=== PATIENT | female | born 1995 | race Caucasian/White ===

== ENCOUNTER 2017-03-20 12:39 | Emergency (ER) | payer SELFPAY ==
--- NOTE | 2017-03-20 14:41 | ED NURSING NOTES ---
Clinical Report - Nurses [facility] [address] [place] [address] 03/20/2017 12:40 Patient: VINOD GARRETT TRIAGE Triage time 12:56 Mar 20 2017. Acuity: LEVEL 3. Chief Complaint: INJURY TO LEFT ANKLE. KENNETH COMA SCORE: Kenneth Coma Scale: 15- eyes open spontaneously (4); best verbal response- oriented x 4 (5); best motor response- obeys commands (6). --12:59 Cody Sharp R.N. 12:56 03/20/17. BP: 122/64. HR: 88. RR: 18. O2 saturation: 98%. Temp: 98.6 F. Pain level now 7/10. --12:59 Cody Sharp R.N. Weight: 73 kg stated. Height/Length: 62 inches Per Patient. BMI: 29.5. --12:58 Cody Sharp R.N. Medications None. --12:57 Cody Sharp R.N. Allergies No Known Drug Allergy. --12:57 Cody Sharp R.N. History Arrived by private vehicle. Historian: patient. Accompanied by family. This occurred (3 days ago). Mechanism of injury: sustained a twisting injury. ( Was chasing a cat and fell into a hole and hurt her left ankle.). She has had numbness (toes). She has had trouble walking. The patient has been limping when trying to walk. No tingling, weakness, neck pain or back pain. 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 PAST MEDICAL HX: No history of diabetes mellitus, hypertension, heart disease or lung disease. Tetanus status: up-to-date. Immunizations: up-to-date. Last normal menstrual period- currently. SOCIAL HX: Heavy tobacco smoker (cigarette)- less than 1 pack per day. History of drug use: marijuana. No alcohol use. SELF HARM ASSESSMENT: A self harm assessment was performed. The patient answered "no" to the question "Have you recently felt down, depressed, or hopeless?" and "Do you have thoughts of harming or killing yourself?". FALL RISK ASSESSMENT: Fall risk assessment completed. No fall risk identified. NUTRITIONAL RISK ASSESSMENT: The nutritional risk assessment revealed no deficiencies. FUNCTIONAL ASSESSMENT: Functional assessment: no impairments noted. LEARNING NEEDS ASSESSMENT: The learning needs assessment revealed no barriers. ABUSE ASSESSMENT: Abuse assessment: (yes) The patient was asked "Do you feel safe in your home?". SKIN INTEGRITY ASSESSMENT: Skin integrity risk assessment completed. No skin integrity risk identified. --12:59 Cody Sharp R.N. ADDITIONAL SURGERIES: no known surgeries. Interventions ID band on patient. --12:59 Cody Sharp R.N. PHYSICAL ASSESSMENT Ambulatory to room. GENERAL / NEURO / PSYCH: Oriented X 4. Alert. Appears in no acute distress. Appears in pain. EXTREMITIES: Capillary refill is less than 2 seconds in the extremities. Extremity pulses are within normal limits. Extremities exhibit normal ROM. Pain with weight bearing. Neuro-vascular status intact to the extremity. Left ankle: tenderness and swelling. SKIN: Skin intact. Skin is warm and dry. --12:59 Cody Sharp R.N. NURSING PROGRESS NOTES Cold pack applied. Extremity elevated. Neuro-vascular extremity check. Reassurance given. Call light placed in reach. Side rails up x 1. Bed placed in lowest position. Brakes of bed on. --13:00 Cody Sharp R.N. 14:55 03/20/17. 4 inch sage bandage applied to left ankle; distal pulses intact, sensation intact and motor function within normal limits. --14:55 Deanne Florez. DISPOSITION / DISCHARGE Departure time: 14:57 Mar 20 2017. Condition at departure: unchanged. No learning barriers present. Discharge instructions provided and reviewed with the patient. Reviewed warnings. Reviewed medication(s). Treatments reviewed. Reviewed referrals. Patient and parent verbalized understanding. Written instructions provided in Sierra Leonean. The patient was discharged home and accompanied by parent. She left the Emergency Department ambulatory and via private vehicle. Parent driving. --14:57 Cody Sharp R.N. 14:56 03/20/17. BP: 118/74. HR: 80. RR: 18. O2 saturation: 100%. Temp: 98.4 F. Pain level now 05/31. --14:57 Cody Sharp R.N. Locked/Released at 03/22/2017 10:10 by Cody Sharp R.N.
--- NOTE | 2017-03-20 14:41 | ED ORDER SUMMARY ---
..... Patient: VINOD GARRETT OrderSheet [facility] VisitID: [id number] [address] [place] [address] 21y, F Registration Date/Time: 03/20/2017 ORDER SHEET Weight: 73.0 kg (stated) Allergies: No Known Drug Allergy GENERAL ORDERS: Ankle 3 or 4V Left Urgent (13:19 03/20/2017 HBivens A.R.N.P.) (Ack 13:20 TBergley) (14:12 TBergley) Casey Wrap (14:40 03/20/2017 HBivens A.R.N.P.) (14:55 Angelica R.N.) MEDICATION ORDERS: IV FLUIDS: ORDER SHEET NOTES: [Electronically signed by Vickie Araujo.R.N.P. (14:58 03/20/2017)] [Electronically signed by Cody Sharp R.N. (10:10 03/22/2017)] [Electronically locked/signed by Cody Sharp R.N. (10:10 03/22/2017)]
--- NOTE | 2017-03-20 14:41 | ED NURSING NOTES ---
Clinical Report - Nurses [facility] [address] [place] [address] 03/20/2017 12:40 Patient: VINOD GARRETT TRIAGE Triage time 12:56 Mar 20 2017. Acuity: LEVEL 3. Chief Complaint: INJURY TO LEFT ANKLE. KENNETH COMA SCORE: Kenneth Coma Scale: 15- eyes open spontaneously (4); best verbal response- oriented x 4 (5); best motor response- obeys commands (6). --12:59 Cody Sharp R.N. 12:56 03/20/17. BP: 122/64. HR: 88. RR: 18. O2 saturation: 98%. Temp: 98.6 F. Pain level now 7/10. --12:59 Cody Sharp R.N. Weight: 73 kg stated. Height/Length: 62 inches Per Patient. BMI: 29.5. --12:58 Cody Sharp R.N. Medications None. --12:57 Cody Sharp R.N. Allergies No Known Drug Allergy. --12:57 Cody Sharp R.N. History Arrived by private vehicle. Historian: patient. Accompanied by family. This occurred (3 days ago). Mechanism of injury: sustained a twisting injury. ( Was chasing a cat and fell into a hole and hurt her left ankle.). She has had numbness (toes). She has had trouble walking. The patient has been limping when trying to walk. No tingling, weakness, neck pain or back pain. 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 PAST MEDICAL HX: No history of diabetes mellitus, hypertension, heart disease or lung disease. Tetanus status: up-to-date. Immunizations: up-to-date. Last normal menstrual period- currently. SOCIAL HX: Heavy tobacco smoker (cigarette)- less than 1 pack per day. History of drug use: marijuana. No alcohol use. SELF HARM ASSESSMENT: A self harm assessment was performed. The patient answered "no" to the question "Have you recently felt down, depressed, or hopeless?" and "Do you have thoughts of harming or killing yourself?". FALL RISK ASSESSMENT: Fall risk assessment completed. No fall risk identified. NUTRITIONAL RISK ASSESSMENT: The nutritional risk assessment revealed no deficiencies. FUNCTIONAL ASSESSMENT: Functional assessment: no impairments noted. LEARNING NEEDS ASSESSMENT: The learning needs assessment revealed no barriers. ABUSE ASSESSMENT: Abuse assessment: (yes) The patient was asked "Do you feel safe in your home?". SKIN INTEGRITY ASSESSMENT: Skin integrity risk assessment completed. No skin integrity risk identified. --12:59 Cody Sharp R.N. ADDITIONAL SURGERIES: no known surgeries. Interventions ID band on patient. --12:59 Cody Sharp R.N. PHYSICAL ASSESSMENT Ambulatory to room. GENERAL / NEURO / PSYCH: Oriented X 4. Alert. Appears in no acute distress. Appears in pain. EXTREMITIES: Capillary refill is less than 2 seconds in the extremities. Extremity pulses are within normal limits. Extremities exhibit normal ROM. Pain with weight bearing. Neuro-vascular status intact to the extremity. Left ankle: tenderness and swelling. SKIN: Skin intact. Skin is warm and dry. --12:59 Cody Sharp R.N. NURSING PROGRESS NOTES Cold pack applied. Extremity elevated. Neuro-vascular extremity check. Reassurance given. Call light placed in reach. Side rails up x 1. Bed placed in lowest position. Brakes of bed on. --13:00 Cody Sharp R.N. 14:55 03/20/17. 4 inch sage bandage applied to left ankle; distal pulses intact, sensation intact and motor function within normal limits. --14:55 Deanne Florez. DISPOSITION / DISCHARGE Departure time: 14:57 Mar 20 2017. Condition at departure: unchanged. No learning barriers present. Discharge instructions provided and reviewed with the patient. Reviewed warnings. Reviewed medication(s). Treatments reviewed. Reviewed referrals. Patient and parent verbalized understanding. Written instructions provided in Kazakh. The patient was discharged home and accompanied by parent. She left the Emergency Department ambulatory and via private vehicle. Parent driving. --14:57 Cody Sharp R.N. 14:56 03/20/17. BP: 118/74. HR: 80. RR: 18. O2 saturation: 100%. Temp: 98.4 F. Pain level now 05/31. --14:57 Cody Sharp R.N. Locked/Released at 03/22/2017 10:10 by Cody Sharp R.N.
--- NOTE | 2017-03-20 14:41 | ED CLINICAL REPORT ---
Clinical Report - Physicians/Mid Levels [facility] [address] [place] [address] 03/20/2017 12:40 Patient: VINOD GARRETT Time Seen: 1309; initial patient contact, initial documentation, patient care assumed. Arrived- By private vehicle. Historian- patient. HISTORY OF PRESENT ILLNESS Chief Complaint: Injury to left ankle. The injury happened about 3 days ago. The patient sustained a twisting injury while running (chasing a cat). Occurred at home. Patient is experiencing moderate pain. Patient denies injury to the head or neck. No other injury. REVIEW OF SYSTEMS The patient complains of pain on weight bearing. She has had new onset of localized moderate swelling of the left ankle, (swelling has gotten better). No tingling, weakness, numbness or skin laceration. PAST HISTORY Negative. The patient has had a prior injury once to the same area (fracture). SOCIAL HISTORY Never smoker. No alcohol use or drug use. No recent travel. Is a local resident. FAMILY HISTORY No significant family medical history. ADDITIONAL NOTES The nursing notes have been reviewed with agreement regarding the chief complaint, HPI, ROS, PMH and patient medications and allergies. PHYSICAL EXAM Vital Signs: 03/20/2017 12:56 BP: 122/64. HR: 88. RR: 18. O2 saturation: 98%. Temp: 98.6 F. Have been reviewed as normal and appear to be correct. Appearance: Alert. Oriented X3. No acute distress. Head: Head atraumatic. Eyes: Pupils equal, round and reactive to light. Eyes normal inspection. Respiratory: No respiratory distress. Skin: Skin intact. Skin warm and dry. Normal skin color. Normal skin turgor. Extremities: Left ankle: moderate tenderness and mild swelling localized to the lateral malleolus. Limited ROM (diminished plantar flexion, dorsiflexion, inversion and eversion). Neurovascular intact distally. No ligamentous laxity present. No joint effusion. No erythema, laceration, abrasion, ecchymosis or puncture wound. No foreign body or deformity. Lower extremity exam otherwise negative. Extremities otherwise negative. Neuro, Vascular and Tendons: Vascular status intact. Sensation intact. Motor intact. Tendon function intact. Gait: Abnormal gait. Gait not tested due to pain. Neuro: Oriented X 3. No motor deficit. No sensory deficit. Note: isolated injury to ankle. LABS, X-RAYS, AND EKG X-Rays: X-rays are normal and reveal no acute disease (and reviewed by dr santiago). Left ankle negative. The X-rays were independently viewed by me. Lt Ankle X-ray: (IMPRESSION: 1. Normal left ankle. Electronically Final signed by:Immanuel Perry MD 03/20/2017 2:53:08 PM). The X-rays were interpreted by the radiologist and contemporaneously by me. PROGRESS AND PROCEDURES Patient counseled in person regarding the patient's stable condition, test results and diagnosis. Differential Diagnosis: Other possible considerations: ankle fx vs sprain. Above considerations are based on history, physical exam, reassessment and X-Ray data. Differential diagnosis was discussed with patient. Disposition: Discharged home in good and improved condition (14:40). Condition: good and stable. CLINICAL IMPRESSION Sprain of the tibiofibular ligament of the left ankle. INSTRUCTIONS Wear elastic wrap (Casey wrap) as directed for one weeks until better. Warnings: GENERAL WARNINGS: Return or contact your physician immediately if your condition worsens or changes unexpectedly, if not improving as expected, or if other problems arise. Specifically return if problem worsens. Prescription Medications: Naproxen 500 mg tablets: take 1 orally every 12 hours as needed for pain. Dispense twenty (20). No refills. Follow-up: Follow up with your doctor in about one week as needed. Call for an appointment. Summary of care provided to patient. Understanding of the discharge instructions verbalized by patient. (Electronically signed by Vickie Araujo A.R.N.P. 03/20/2017 14:58)
--- NOTE | 2017-03-20 14:41 | ED ORDER SUMMARY ---
..... Patient: VINOD GARRETT OrderSheet [facility] VisitID: [id number] [address] [place] [address] 21y, F Registration Date/Time: 03/20/2017 ORDER SHEET Weight: 73.0 kg (stated) Allergies: No Known Drug Allergy GENERAL ORDERS: Ankle 3 or 4V Left Urgent (13:19 03/20/2017 HBivens A.R.N.P.) (Ack 13:20 TBergley) (14:12 TBergley) Casey Wrap (14:40 03/20/2017 HBivens A.R.N.P.) (14:55 Angelica R.N.) MEDICATION ORDERS: IV FLUIDS: ORDER SHEET NOTES: [Electronically signed by Vickie Araujo.R.N.P. (14:58 03/20/2017)] [Electronically signed by Cody Sharp R.N. (10:10 03/22/2017)] [Electronically locked/signed by Cody Sharp R.N. (10:10 03/22/2017)]
--- NOTE | 2017-03-20 14:56 | DIAGNOSTIC IMAGING REPORT ---
PROCEDURE: XR ANKLE 3 OR 4 VIEWS - LEFT INDICATION: TRAUMA/INJURY TECHNIQUE: Four views. COMPARISON: None. FINDINGS: Osseous structures and joint spaces are normal. IMPRESSION: 1. Normal left ankle.
--- NOTE | 2017-03-22 15:12 | ED MED RECONCILIATION SUMMARY ---
Patient: VINOD GARRETT Medication Reconciliation Report [facility] VisitID: [id number] [address] [place] [address] 21y, F Registration Date/Time: 03/20/2017 Weight: 73.0 kg Height/Length: 62 in. BMI: 29.5 ALLERGIES: No Known Drug Allergy The patient's Home Medications are listed below: NONE. The source(s) of the original Home Medication information: Not obtained. The following Medications were given to the patient in the Emergency Department: None. The following Medications were prescribed to the patient: Naproxen 500 mg tablets: take 1 orally every 12 hours as needed for pain. Dispense twenty (20). No refills. -- Vickie Araujo A.R.N.P.
--- NOTE | 2017-03-22 15:12 | ED MED RECONCILIATION SUMMARY ---
Patient: VINOD GARRETT Medication Reconciliation Report [facility] VisitID: [id number] [address] [place] [address] 21y, F Registration Date/Time: 03/20/2017 Weight: 73.0 kg Height/Length: 62 in. BMI: 29.5 ALLERGIES: No Known Drug Allergy The patient's Home Medications are listed below: NONE. The source(s) of the original Home Medication information: Not obtained. The following Medications were given to the patient in the Emergency Department: None. The following Medications were prescribed to the patient: Naproxen 500 mg tablets: take 1 orally every 12 hours as needed for pain. Dispense twenty (20). No refills. -- Vickie Araujo A.R.N.P.
--- NOTE | 2017-03-22 15:12 | ED DISCHARGE INSTRUCTIONS ---
Patient: VINOD GARRETT General Instructions [facility] VisitID: [id number] [place] [address] 21y, F Registration Date/Time: 03/20/2017 Sprain of the tibiofibular ligament of the left ankle. INSTRUCTIONS Wear elastic wrap (Casey wrap) as directed for one weeks until better. Warnings: GENERAL WARNINGS: Return or contact your physician immediately if your condition worsens or changes unexpectedly, if not improving as expected, or if other problems arise. Specifically return if problem worsens. Prescription Medications: Naproxen 500 mg tablets: take 1 orally every 12 hours as needed for pain. Dispense twenty (20). No refills. Follow-up: Follow up with your doctor in about one week as needed. Call for an appointment. Summary of care provided to patient. Understanding of the discharge instructions verbalized by patient. ADDITIONAL INFORMATION Sprain, Ankle,With X-Ray A sprain is an injury to the ligaments or capsule that holds a joint together. There are no broken bones. Most sprains take from four to six weeks to heal. If the ligament is completely torn (severe sprain), it can take several months to recover. Mild to moderate sprains may be treated with an elastic wrap or an in-shoe splint to provide support and prevent re-injury. A mild sprain may not require any additional support. A severe sprain may require surgery to repair. Home care The following guidelines will help you care for your injury at home: Stay off the injured leg as much as possible until you can walk on it without pain. If you have a lot of pain with walking, crutches or a walker may be prescribed. (These can be rented or purchased at many pharmacies and surgical or orthopedic supply stores). Follow your doctor's advice regarding when to begin bearing weight on that leg. Keep your leg elevated to reduce pain and swelling. When sleeping, place a pillow under the injured leg. When sitting, support the injured leg so it is level with your waist. This is very important during the first 48 hours. Apply an ice pack (ice cubes in a plastic bag, wrapped in a towel) over the injured area for 20 minutes every 12 hours the first day. You can place the ice pack directly over the splint/cast. If you were given a boot, open it to apply the ice pack. Continue with ice packs 34 times a day for the next two days, then as needed for the relief of pain and swelling. You may use acetaminophen or ibuprofen to control pain, unless another pain medicine was prescribed. If you have chronic liver or kidney disease or ever had a stomach ulcer or GI bleeding, talk with your doctor before using these medicines. You may return to sports after healing, when you can run without pain. A sprained ankle is at risk for re-injury during the first six weeks. During that time, protect your ankle with an in-shoe splint that prevents tilting of your ankle from side to side. This is very important if you do active work or play sports during that time. Follow-up care Any X-rays you had today dont show any broken bones, breaks, or fractures. Sometimes fractures dont show up on the first X-ray. Bruises and sprains can sometimes hurt as much as a fracture. These injuries can take time to heal completely. If your symptoms dont improve or they get worse, talk with your doctor. You may need a repeat X-ray. When to seek medical care Get prompt medical attention if any of the following occur: The plaster cast or splint gets wet or soft The fiberglass cast or splint gets wet and does not dry for 24 hours Pain or swelling increases, or redness appears Toes become cold, blue, numb or tingly Re-injure your ankle Casey Wrap An "Casey Bandage" refers to any elastic bandage wrap (2-6" wide). This is used to apply support and compression to an arm or leg. It will help prevent or reduce swelling also. When applying the bandage, it should not be stretched too tightly. A tight Casey Wrap will reduce circulation and cause tingling or numbness in the hand or foot. It may increase the pain under the bandage. If you get these symptoms, remove the wrap and rest the limb. Symptoms should go away within 1-2 hours. Once symptoms go away, reapply the bandage with less stretch. If symptoms do not go away after 1-2 hours with the bandage off, call your doctor or return to this facility promptly. Naproxen Sodium Oral tablet What is this medicine? NAPROXEN (na PROX en) is a non-steroidal anti-inflammatory drug (NSAID). It is used to reduce swelling and to treat pain. This medicine may be used for dental pain, headache, or painful monthly periods. It is also used for painful joint and muscular problems such as arthritis, tendinitis, bursitis, and gout. How should I use this medicine? Take this medicine by mouth with a glass of water. Follow the directions on the prescription label. Take it with food if your stomach gets upset. Try to not lie down for at least 10 minutes after you take it. Take your medicine at regular intervals. Do not take your medicine more often than directed. Long-term, continuous use may increase the risk of heart attack or stroke. A special MedGuide will be given to you by the pharmacist with each prescription and refill. Be sure to read this information carefully each time. Talk to your client server programmer regarding the use of this medicine in children. Special care may be needed. What side effects may I notice from receiving this medicine? Side effects that you should report to your doctor or health wound care technician as soon as possible: black or bloody stools, blood in the urine or vomit blurred vision chest pain difficulty breathing or wheezing nausea or vomiting severe stomach pain skin rash, skin redness, blistering or peeling skin, hives, or itching slurred speech or weakness on one side of the body swelling of eyelids, throat, lips unexplained weight gain or swelling unusually weak or tired yellowing of eyes or skin Side effects that usually do not require medical attention (report to your doctor or health wound care technician if they continue or are bothersome): constipation headache heartburn What may interact with this medicine? alcohol aspirin cidofovir diuretics lithium methotrexate other drugs for inflammation like ketorolac or prednisone pemetrexed probenecid warfarin What if I miss a dose? If you miss a dose, take it as soon as you can. If it is almost time for your next dose, take only that dose. Do not take double or extra doses. Where should I keep my medicine? Keep out of the reach of children. Store at room temperature between 15 and 30 degrees C (59 and 86 degrees F). Keep container tightly closed. Throw away any unused medicine after the expiration date. What should I tell my health care provider before I take this medicine? They need to know if you have any of these conditions: asthma cigarette smoker drink more than 3 alcohol containing drinks a day heart disease or circulation problems such as heart failure or leg edema (fluid retention) high blood pressure kidney disease liver disease stomach bleeding or ulcers an unusual or allergic reaction to naproxen, aspirin, other NSAIDs, other medicines, foods, dyes, or preservatives or trying to get breast-feeding What should I watch for while using this medicine? Tell your doctor or health wound care technician if your pain does not get better. Talk to your doctor before taking another medicine for pain. Do not treat yourself. This medicine does not prevent heart attack or stroke. In fact, this medicine may increase the chance of a heart attack or stroke. The chance may increase with longer use of this medicine and in people who have heart disease. If you take aspirin to prevent heart attack or stroke, talk with your doctor or health wound care technician. Do not take other medicines that contain aspirin, ibuprofen, or naproxen with this medicine. Side effects such as stomach upset, nausea, or ulcers may be more likely to occur. Many medicines available without a prescription should not be taken with this medicine. This medicine can cause ulcers and bleeding in the stomach and intestines at any time during treatment. Do not smoke cigarettes or drink alcohol. These increase irritation to your stomach and can make it more susceptible to damage from this medicine. Ulcers and bleeding can happen without warning symptoms and can cause . You may get drowsy or dizzy. Do not drive, use machinery, or do anything that needs mental alertness until you know how this medicine affects you. Do not stand or sit up quickly, especially if you are an older patient. This reduces the risk of dizzy or fainting spells. This medicine can cause you to bleed more easily. Try to avoid damage to your teeth and gums when you brush or floss your teeth. You have been given the following additional information: Sprain, Ankle, With X-Ray Casey Wrap Naproxen Sodium Oral tablet (Electronically signed by Vickie Araujo A.R.N.P. 03/20/2017 14:58)
--- NOTE | 2017-03-22 15:12 | ED MAR SUMMARY ---
..... Medication Administration Record [facility] [address] [place], [place] [id number] Patient: VINOD GARRETT Visit ID: [id number] 21y, F Weight: 73.0 kg Height/Length: 62 in BMI: 29.5 ALLERGIES: No Known Drug Allergy
--- NOTE | 2017-03-22 15:12 | ED MAR SUMMARY ---
..... Medication Administration Record [facility] [address], [place] [id number] Patient: VINOD GARRETT Visit ID: [id number] 21y, F Weight: 73.0 kg Height/Length: 62 in BMI: 29.5 ALLERGIES: No Known Drug Allergy
== END 2017-03-20 15:00 | disposition home or self-care (01) ==
LOC: ED SRH 12:39
DX: S93.432A Sprain of tibiofibular ligament of left ankle, initial encounter (principal); X50.1XXA Overexertion from prolonged static or awkward postures, initial encounter; Y93.02 Activity, running; Y92.019 Unspecified place in single-family (private) house as the place of occurrence of the external cause; Y99.9 Unspecified external cause status